=== PATIENT | female | born 1990 | race Caucasian/White ===

== ENCOUNTER 2024-08-23 07:27 | Emergency (ER) | payer BC, SELFPAY ==
[2024-08-23 07:30] VITALS: BP 111/80
[2024-08-23 07:49] LABS: % Basophils 0.9 % (0-2); % Eosinophils 5.8 % (0-6); % Immature Granulocytes 0.2 % (0-0.5); % Lymphocytes 21.5 % (20.5-51.1); % Monocytes 10.6 % (1.7-9.3); Absolute Basophils 0.1 10^3/uL (0-0.2); Absolute Eosinophils 0.3 10^3/uL (0-0.7); Absolute Lymphocytes 1.2 10^3/uL (1.2-3.4); Absolute Monocytes 0.6 10^3/uL (0.1-0.6); Absolute Neutrophils 3.3 10^3/uL (1.4-6.5); Hematocrit 37.4 % (37.0-47.0); Hemoglobin 12.1 g/dL (12.0-16.0); Mean Corp Hgb Conc. 32.4 g/dL (33.0-37.0); Mean Corpuscular Hgb 30.9 pg (27.0-31.0); Mean Corpuscular Volume 95.7 fL (81.0-99.0); Mean Platelet Volume 10.6 fL (7.4-10.4); Nucleated Red Blood Cells % 0 %; Platelet Count 210 10^3/uL (130-400); Red Blood Cell Count 3.91 10^6/uL (4.20-5.40); Red Cell Dist. Width 13.4 % (11.5-14.5); White Blood Cell Count 5.4 10^3/uL (4.8-10.8)
[2024-08-23 08:03] LABS: Urine Albumin Trace (Neg - Trace); Urine Bilirubin Negative (Negative); Urine Character Clear (Clear); Urine Color Yellow; Urine Glucose Negative (Negative); Urine Ketone Negative (Negative); Urine Leukocyte Negative (Negative); Urine Nitrite Negative (Negative); Urine Occult Blood 1+ (Negative); Urine Urobilinogen Negative (Neg - 1+)
[2024-08-23 08:04] LABS: HCG, Serum Qualitative Screen Negative
[2024-08-23 08:10] LABS: AST (SGOT) 25 U/L (14-36); Albumin 4.5 g/dl (3.5-5.0); Blood Urea Nitrogen 12 mg/dl (7-17); Carbon Dioxide 28 mmol/L (22-30); Glucose 90 mg/dl (70-99); Total Bilirubin 0.4 mg/dl (0.2-1.3); Total Protein 6.9 g/dl (6.3-8.2); eGFR > 60.00
[2024-08-23 08:12] LABS: ALT (SGPT) 20 U/L (0-35); Alkaline Phosphatase 39 U/L (38-126); Calcium 9.5 mg/dl (8.4-10.2); Chloride 106 mmol/L (98-107); Lipase 148 U/L (23-300); Potassium 3.9 mmol/L (3.5-5.1); Sodium 143 mmol/L (135-145)
[2024-08-23 08:27] LABS: Urine Red Blood Cell 0-2 /HPF (0-2); Urine Squamous Cell >30 /LPF (Few)
[2024-08-23 08:28] LABS: Urine Bacteria Few (Negative); Urine Mucus Moderate
--- NOTE | 2024-08-23 09:08 | ED.GENMED ---
History of Present Illness
General
Chief Complaint: Abdominal Symptoms
Source: patient
Exam Limitations: none
Time Seen by Provider: 08/23/24 08:56
Nursing documentation reviewed up to this point in time: agreed with
History of Present Illness
History of Present Illness:
34 yo female with h/o seizures on Keppra, presents for abdominal pain. States past 4 days has had pain (points to epigastrium) that goes to same area in back. States eating and even drinking water aggravates the pain, now /, constant pressure
pain. Is nauseous, no vomiting. Took Ibuprofen yesterday with no relief. Leaning forward gives some relief.
She's had similar symptoms in the past when she was drinking 2 vodka and seltzer drinks daily in 2020-08/2023 when she stopped and has drank only socially since.
last week for 4-5 days in a row she drank 3 drinks of vodka and seltzer daily celebrating the holidays with family.
Has noted no change in color of stool. Denies diarrhea/constipation.
Past History
Past History
ED Past Medical History: Seizures
ED Past Surgical History: Gynecological (breast augmentation)
Social History
Tobacco: Non-smoker
Alcohol: Occasional
Personal:
Living: with family
Employment: Employed (works from home)
Review of Systems
Review of Systems
Allergies reviewed?: Yes
All Other Systems: ROS reviewed and negative except as documented in HPI and ROS
Constitutional: Denies fever
Respiratory: Denies trouble breathing
Cardiac: Denies chest pain
ABD/GI: Reports abdominal pain, nausea and anorexia; Denies vomiting, diarrhea, constipated, bloody stools or black stools
: Reports no symptoms
Musculoskeletal: Reports no symptoms
Skin: Reports no symptoms
Neurological: Reports no symptoms
Phy Exam
Physical Exam
Physical Exam:
GENERAL: No acute distress. A&Ox3.
CONSTITUTIONAL: Afebrile.
EYES: clear, conjunctivae normal
ENMT: moist mucus membranes, Pharynx nl
RESPIRATORY: Regular respirations, nonlabored, lungs clear.
CARDIOVASCULAR: Regular rate and rhythm, no murmurs, no rubs.
GI: Soft, tender epigastrium and entire left abdomen, normal BS
MUSCULOSKELETAL: Moves with ease. Well perfused.
SKIN: Warm, dry, pink
PSYCH: Normal mood and affect. Well kept, interactive and appropriate
NEUROLOGIC: Awake, alert and oriented. No focal neurological deficits
Course
Orders/Labs/Results
Orders:
Orders
08/23/24 07:33
Test Result ONCE
08/23/24 07:39
Complete Blood Count/With Diff Urgent
Comprehensive Metabolic Panel Urgent
HCG, Serum Qualitative Screen Urgent
Lipase Urgent
Urinalysis Reflex To Culture Urgent
Date Specimen was Collected: 08/23/24
Time Specimen was Collected: 07:33
Urine Microscopic Reflex Cult Urgent
08/23/24 09:08
CT Abd/pel W Iv And Oral Contr Urgent
Comment:
Reason For Exam: pain left abdomen, epigastric, through to back
Iohexol [Omnipaque] See Protocol PO NOW STA
08/23/24 09:17
Pantoprazole [Protonix] 40 mg PO NOW STA
08/23/24 10:27
0.9% Sodium Chloride 500 ml [Nss] 500 ml IV BOLUS
Abnormal Lab Results
08/23/24
07:39
RBC 3.91 L 10^6/uL
(4.20-5.40)
MCHC 32.4 L g/dL
(33.0-37.0)
MPV 10.6 H fL
(7.4-10.4)
Monocytes % 10.6 H %
(1.7-9.3)
Ur Occult Blood Reflex 1+ A
(Negative)
Urine Bacteria (Reflex) Few A
(Negative)
08/23/24 07:39
08/23/24 07:39
Vital Signs
Initial and Last Documented VS:
Initial Vital Signs
Temp Pulse Resp BP Pulse Ox
98.4 F 102 16 111/80 98
08/23/24 07:30 08/23/24 07:30 08/23/24 07:30 08/23/24 07:30 08/23/24 07:30
Last Documented Vital Signs
Temp Pulse Resp BP Pulse Ox
98.4 F 97 16 112/68 99
08/23/24 07:30 08/23/24 13:13 08/23/24 13:13 08/23/24 13:13 08/23/24 13:13
MDM/Problems Addressed
Differential Diagnosis Includes:
gastritis, PUD, GB disease, pancreatitis, diverticulitis, colitis
MDM/Problems Addressed:
34 yo female with h/o seizures on Kera, presents for abdominal pain. States past 4 days has had pain (points to epigastrium) that goes to same area in back. States eating and even drinking water aggravates the pain, now 7/10, constant pressure
pain. Is nauseous, no vomiting. Took Ibuprofen yesterday with no relief. Leaning forward gives some relief.
She's had similar symptoms in the past when she was drinking 2 vodka and seltzer drinks daily in 2020-08/2023 when she stopped and has drank only socially since.
last week for 4-5 days in a row she drank 3 drinks of vodka and seltzer daily celebrating the holidays with family.
Has noted no change in color of stool. Denies diarrhea/constipation. Denies any new stressors.
Afebrile, NAD
CBC, CMP, lipase, UA unremarkable
hCG negative
CT abd/pelvis w IV and oral contrast radiology report read: IMPRESSION: Mild periportal edema is present. This is most likely on the basis of intravenous fluid administration in this patient. The patient has liver function tests within normal range.
2 mm nephrolith in the lower pole of the left kidney. No evidence for ureteral calculus.
The appendix appears normal. No evidence for bowel obstruction or free intraperitoneal air.
Small to moderate amount of free fluid within the pelvic cul-de-sac, nonspecific. Normal CT appearance of the uterus and both ovaries.
Nothing in workup here to explain symptoms
Recommended Protonix, (rx sent to pharmacy) and GI follow up
*Critical Care Note
Total Time (30-74mins, 75-104mins- exclusive of procedures): Not Applicable
ED Attending Note
-
Portions of this chart may have been created with voice recognition software.� Occasional wrong word or��sound alike� substitutions may have occurred due to the inherent limitations of voice recognition software.
Discharge Plan
Departure
Patient Disposition: Home (Routine Discharge)
Date of Disposition: 08/23/24
Time of Disposition: 12:56
Patient with high blood pressure during this ER visit?: No
Condition: Fair
Discharge Problem:
Acute epigastric pain
Instructions: [place] Diet, Abdominal Pain
Prescriptions:
New
pantoprazole 40 mg tablet,delayed release (DR/EC)
40 mg PO DAILY Qty: 20 0RF
Referrals:
Juanita Benson MD [Active] - Next open appointment
UNKNOWN - PT DOES,NOT KNOW [Family Provider] -
Activity Restrictions/Additional Instructions:
As we discussed, there is nothing worrisome in your workup here today. I sent a prescription to your pharmacy for Protonix to take daily
Call and make an appointment with the GI doctor for follow-up
Be sure to see your primary doctor in the meantime if you cannot get an appointment with the GI doctor and your symptoms persist beyond 1 week on the Pantoprazole.
Interventions
Interventions:
*Risk Screen - Suicide Last Done: 08/23/24 07:30
*General Assessment Last Done: 08/23/24 10:30
*Neglect/Abuse Screening Last Done: 08/23/24 07:30
ED- Fall Risk Assessment Last Done: 08/23/24 09:26
*Nursing Disposition Last Done: 08/23/24 13:13
FN-Grsesi-Okowsasxgh Assessment Last Done: 08/23/24 09:26
Discharge Date and Time
Discharge Date/Time: 08/23/24 13:14
Print Language: CHINESE
[2024-08-23] MEDS: OMNIPAQUE 50 ML PO (09:15)
[2024-08-23] MEDS: PROTONIX 40 MG PO (09:32)
[2024-08-23] MEDS: NSS 500 IV (10:27)
[2024-08-23 13:13] VITALS: BP 112/68
== END 2024-08-23 13:14 | disposition home or self-care (01) ==
LOC: EMR 07:27
PROVIDERS: Emergency Medicine; EMERGENCY PHYSICIAN Student in an Organized Health Care Education/Training Program
DX: R10.13 Epigastric pain (principal); N20.0 Calculus of kidney
CPT/HCPCS: 96360; 99284; 74177; 80053; 81003; 81015; 83690; 84703; 85025; Q9967

== ENCOUNTER → 2025-04-05 09:02 | Outpatient (REF) | payer BC, SELFPAY | LOC: WDC 09:02 | PROVIDERS: ATTENDING PHYSICIAN Nurse Practitioner | DX: N64.4 Mastodynia (principal); N63.0 Unspecified lump in unspecified breast; Z80.3 Family history of malignant neoplasm of breast; N63.11 Unspecified lump in the right breast, upper outer quadrant | CPT/HCPCS: 76642; 77062; 77066 ==